=== PATIENT | male | born 1975 | race Caucasian/White ===

== ENCOUNTER 2018-05-22 22:04 | Inpatient (IN) | payer OTHER ==
[~2018-05-22] VITALS: Ht 182.9 cm; Wt 69.5 kg
[2018-05-22] MEDS ORDERED: SERT100 PO (22:26)
[2018-05-22] MEDS ORDERED: PRED20 PO (22:26)
[2018-05-22] MEDS ORDERED: Dicyclomine HCl20 MG PO (22:26)
[2018-05-22] MEDS ORDERED: HYDPAM50 PO (22:27)
--- NOTE | 2018-05-23 03:50 | NUR ---
SHIFT SUMMARY THE PT ADMITTED FOR EXACERBATION OF CROHNS DISEASE. FULL CODE. NPO. 20 G IV TO R FA. 75 MLS/HR NS. NG TUBE WITH LOW INTERMITTENT SUCTION. GI CONSULT ORDERED BUT NO GI AVAILABLE UNTIL 05/28/18. SURGICAL CONSULT CALLED IN TO ANSWERING SERVICE AT 0329. LOVENOX FOR DVT PROPHYLAXIS. THE PT REPORTED TO THE ED WITH C/O ABD PAIN. THE PT HAS A HX OF CROHN DISEASE AND ABDOMINAL S/SX WORSENED OVER THE PAST FEW DAYS. THE PT WAS RELEASED FROM INCARCERATION DUE TO THE INCREASE IN SYMPTOMS. AFTER RELEASE THE PT PRESENTED TO THE [facility] WHERE A CT SHOWED A PARTIAL SBO AND INFLAMMATION. PT MEDICATED FOR PAIN X1 SO FAR THIS SHIFT. NG TUBE INSERTED WITHOUT COMPLICATION INTO L NOSTRIL. PLACEMENT CHECK WITH AIR AND GASTRIC ASPIRATION, CONTENTS REINSERTED. PT ON LOW INTERMITTENT SUCTION AND APPEARS TO BE TOLLERATING WELL. THE PT DOES APPEAR TO BE RESTING COMFORTABLY AT THE TIME. THE PT DOES HAVE EAR PLUGS, THIS NURSE PROVIDED PT WITH AN EXTRA PAIR. PT IS ALERT, ORIENTED, PLEASENT, COOPERATIVE, AND INDEPENDENT WITH CARE. ABLE TO MAKE NEEDS KNOWN AND CALL LIGHT IN REACH.
[2018-05-23 05:02] LABS: Hematocrit 37.7 % (37.0-53.0); Hemoglobin 12.7 g/dL (13.5-17.5); Mean Corpuscular HGB 29.7 pg (26.0-34.0); Mean Corpuscular HGB Conc 33.7 g/dL (31.5-36.5); Mean Corpuscular Volume 88 fL (80-100); Mean Platelet Volume 8.6 fL (9.1-12.4); Platelet Count 230 K/mm3 (150-400); RDW Coefficient Variation 12.6 % (11.7-14.2); RDW Standard Deviation 40.9 fL (35.1-46.3); Red Blood Cell Count 4.27 M/mm3 (4.30-5.90)
[2018-05-23 05:35] LABS: Alanine Aminotransfer (ALT/SGP 16 U/L (12-78); Albumin, Blood 2.5 g/dL (3.4-5.0); Albumin/Globulin Ratio 0.7 (0.8-1.8); Alk Phos 78 U/L (50-136); Anion Gap 6 mmol/L (6-16); Aspartate Aminotrans (AST/SGOT 12 U/L (12-37); Bilirubin, Total 0.6 mg/dL (0.1-1.0); Blood Urea Nitrogen 13 mg/dL (8-24); Bun/Creatinine Ratio 18.5 (12.0-20.0); CO2, Blood 25 mmol/L (21-32); Calcium, Blood 7.5 mg/dL (8.5-10.1); Chloride, Blood 110 mmol/L (98-108); Globulin, Blood 3.4 g/dL (2.2-4.0); Glomerular Filtration Rate >60 (60-); Glucose, Blood 111 mg/dL (70-99); Sodium, Blood 141 mmol/L (136-145); Total Protein, Blood 5.9 g/dL (6.4-8.2)
--- NOTE | 2018-05-23 08:51 | NUR ---
PATIENT DID NOT EAT BREAKFAST THIS SHIFT DUE TO BEING NPO AT THIS TIME.
--- NOTE | 2018-05-23 13:25 | NUR ---
NG TUBE REMOVED PER DR ORDER, PT TOLERATED. DIET ADVANCED TO CLEAR LIQUIDS. NEW ANXIETY MED ADDED TO EMAR PER PT REQUEST. PT PASSING GAS NO BOWEL MOVEMENTS YET. GI CONSULT NOT PUT IN DUE TO UNAVAILABILITY OF GI DOCTORS UNTIL May. DR INFORMED.
--- NOTE | 2018-05-23 17:27 | NUR ---
PT FACE IS VERY FLUSHED, RED SPLOTCHES OVERY CHECKS AND EYES. PT STATES THIS IS NORMAL FOR HIM WHEN TAKING A STERIOD AND STATES HE TAKES STEROIDS ON A DAILY BASIS. PT STATES LATER TODAY THAT HIS FACE SEEMS A LITTLE MORE RED THAN NORMAL. STATES NO PAIN OR ITCHING AT SITE. DR INFORMED. VERONIKA CHRIS. WILL CTM
--- NOTE | 2018-05-23 18:08 | NUR ---
PT NG TUBE REMOVED TODAY PER DIET ADVANCED TO CLEAR LIQ, TOLERATING WELL. 2 BOWEL MOVEMENTS DURING SHIFT. PT WAITING TO BE CONSULTED BY GI, NOT AVAILABLE UNTIL May. PT INDEPENDENT IN ROOM. IV AT 75ML/HR. CALL LIGHT IN REACH
[2018-05-23 22:13] LABS: Adenovirus F 40/41 Not Detected (NOT DETECT); Campylobacter Sp Not Detected (NOT DETECT); Cryptosporidium Not Detected (NOT DETECT); Cyclospora Cayetanensis Not Detected (NOT DETECT); E. Coli O157 Not Detected (NOT DETECT); Entamoeba Histolytica Not Detected (NOT DETECT); Enteroaggregative E. coli-EAEC Not Detected (NOT DETECT); Enteropathogenic E. coli-EPEC Not Detected (NOT DETECT); Enterotoxigenic E. coli-ETEC Not Detected (NOT DETECT); Giardia Lamblia Not Detected (NOT DETECT); Plesiomonas Shigelloides Not Detected (NOT DETECT); Salmonella Sp Not Detected (NOT DETECT); Shiga Toxin-prod E. coli-STEC Not Detected (NOT DETECT); Shigella/Enteroin E. coli-EIEC Not Detected (NOT DETECT); Vibrio Cholerae Not Detected (NOT DETECT); Vibrio Sp Not Detected (NOT DETECT); Yersinia Enterocolitica Not Detected (NOT DETECT)
[2018-05-23 22:14] LABS: Astrovirus Not Detected (NOT DETECT); Norovirus GI/GII Not Detected (NOT DETECT); Rotavirus A Not Detected (NOT DETECT); Sapovirus Not Detected (NOT DETECT)
--- NOTE | 2018-05-23 23:03 | NUR ---
IV ABO REACTION PT STARTED ON 2100 ABO ORDERED AND PT NOTED TO BEGIN HAVING SYMPTOMS OF APPEARING RED LINE SAME CURVE VEIN. CHARGE NURSE STOPPED ABO AND FLUSHED WITH NS. THIS NURSE ATTEMPTED TO RESTART IV WAS NEW AND COULD HAVE BEEN IRRITATED DUE TO NEW SITE. REDNESS CONTINUED AND WAS SOME NOTED ITCHING. CALL TO HOSPITALIST WHO STATED TO DC, GIVE HYDRALIZINE NOW, AND START ROCEPHIN IV 1G FIRST DOSE NOW AND DAILY.
--- NOTE | 2018-05-24 03:40 | NUR ---
SHIFT SUMMARY NO APPAERNT ACUTE CHANGES NOTED SO FAR THIS SHIFT. PT CONTINUES TO PASS GAS AND STOOL. COLLECTED STOOL SAMPLE AND SENT TO LAB WITH NOTHING APPARENT DETECTED. REACTION TO ABO QUICKLY SUBSIDED AFTER STOPPING ABO AND NO APPARENT ADVERSE REACTION TO ROCEPHIN SO FAR. PT DID STATE DIFFICULTY WITH SLEEP. HAVE ATTEMPTED TO ALLOW PT TO REST WITH DOOR CLOSED. APPEARS THAT PT HAS BEEN RESTING COMFORTABLY BUT AWAKE THROUGHOUT THE SHIFT. MEDICATED FOR ABD CRAMPING PAIN X1 SO FAR THIS SHIFT. NO APPARENT SIGNS OF ACUTE DISTRESS. ABLE TO MAKE NEEDS KNOWN AND CALL LIGHT IN REACH.
[2018-05-24 05:55] LABS: Anion Gap 9 mmol/L (6-16); Blood Urea Nitrogen 8 mg/dL (8-24); Bun/Creatinine Ratio 9.5 (12.0-20.0); CO2, Blood 22 mmol/L (21-32); Chloride, Blood 114 mmol/L (98-108); Creatinine, Blood 0.84 mg/dL (0.60-1.20); Glomerular Filtration Rate >60 (60-); Glucose, Blood 87 mg/dL (70-99); Potassium, Blood 3.5 mmol/L (3.5-5.5); Sodium, Blood 145 mmol/L (136-145)
--- NOTE | 2018-05-24 16:47 | NUR ---
SHIFT SUMMARY PATIENT A&O X4, INDEPENDENT IN THE ROOM. DENIES ANY SOB OR NAUSEA THIS SHIFT. RN MEDICATED X1 FOR ABD CRAMPING THIS SHIFT. IV ABX ORDERED. PATIENT UP AND WALKING THROUGHOUT THE SHIFT. REGULAR DIET TOLERATED WELL. BED IN LOWEST POSITION, CALL LIGHT WITHIN REACH. NO ACUTE CHANGES. RN WILL CONTINUE TO MONITOR.
--- NOTE | 2018-05-25 06:41 | NUR ---
05/25/18 0600 AWAKE AND UP WALKING THE HALLS. PT DID NOT REQUIRE ANY PAIN MEDS THIS SHIFT. VITALS STABLE. UNEVENTFUL NIGHT.
--- NOTE | 2018-05-25 13:38 | NUR ---
ASSUMED CARE: REPORT RECIEVED FROM RAMYA JACOBO. PT INDEPENDENT IN ROOM. SITTING UPRIGHT IN BED. REQUESTS SNACKS FROM [employer]. SPOKE WITH LENA IN CARE MANAGEMENT, STATES PT TO BE DC'D AT 4 BY POLICE ESCORT. PT AWARE. NO FURTHER NEEDS OR CONCERNS AT THIS TIME
[2018-05-25] MEDS ORDERED: CIPR500 PO (15:00)
[2018-05-25] MEDS ORDERED: METR500 PO (15:01)
[2018-05-25] MEDS ORDERED: GAVILAX17 GM PO (15:01)
--- NOTE | 2018-05-25 15:28 | NUR ---
PT RELEASED INTO POLICE CUSTODY. HARD SCRIPTS FOR MEDS GIVEN WELL DC INSTRUCTIONS. REPORT CALLED TO NURSE HUI AT [facility]. NO FURTHER NEEDS OR CONCERNS NOTED. IV DC'D WNL
== END 2018-05-25 15:27 | disposition home or self-care (01) | DRG 872 ==
LOC: ER 22:04 → MEDS 05-23 01:07 → ENPENDDIS 05-25 11:00 → MEDS 05-25 15:27
PROVIDERS: Internal Medicine; ADMIT Internal Medicine
PROC: 0D9670Z Drainage of Stomach with Drainage Device, Via Natural or Artificial Opening (ICD-10-PCS; principal; 2018-05-23)
DX: A41.9 Sepsis, unspecified organism (principal); K56.609 Unspecified intestinal obstruction, unspecified as to partial versus complete obstruction; K50.919 Crohn's disease, unspecified, with unspecified complications; Z88.5 Allergy status to narcotic agent; Z88.8 Allergy status to other drugs, medicaments and biological substances; Z87.891 Personal history of nicotine dependence; Z79.899 Other long term (current) drug therapy
CPT/HCPCS: 36415; 80048; 80053; 83605; 85027; 87507; 96374; 96375; 99285-25; J0696; J1170; J1650; J1956; J2405; J2930; J3010; J7030